=== PATIENT | male | born 1975 | race Two or more races ===

== ENCOUNTER → 2025-04-07 | Emergency (ER) | payer OTHER ==
[~2025-04-07] VITALS: Ht 175.3 cm; Wt 83.9 kg
[~2025-04-07] MED LIST: ACETAMINOPHEN 500 MG GEL..CAP PO ONE; FAMOTIDINE/PF 20 MG in 0.9 % SODIUM CHLORIDE 8 ML IV PUSH ONE; FAMOTIDINE/PF 20 MG/2 ML VIAL ONE; HYDROCODONE/CHLORPHEN P-STIREX 5 ML ML PO ONE; IPRAT-ALBUT 0.5-3 ML IH; METFORMIN HCL1000 M2 PO; METHYLPREDNISOLONE SOD SUCC 125 MG VIAL IV ONE; METHYLPREDNISOLONE SOD SUCC 125 MG VIAL ONE; MUCINEX DM ER1 EAC1 PO; PEPCID AC20 MG PO; VASOTEC20 M1 PO; ZITHROMAX500 MG PO
[2025-04-07 18:00] LABS: BASO % 0.5 % (0.1-1.2); EOS # 0.05 (0.04-0.54); EOS % 2.6 % (0.7-7.0); LYMPH # 0.85 (1.18-3.74); LYMPH % 44.3 % (19.3-53.1); MEAN PLATELET VOLUME 9.10 fl (9.4-12.4); MONO # 0.21 (0.24-0.82); MONO % 10.9 % (4.7-12.5); NEUT # 0.80 (1.56-6.13); NEUT % 41.7 % (34.0-71.1); RED CELL DISTRIBUTION WIDTH 12.7 % (11.6-14.4)
[2025-04-07 18:37] LABS: ALT/SGPT 128.0 U/L (12-78); AST/SGOT 58.0 U/L (15-37); BILIRUBIN TOTAL 0.43 mg/dL (0.3-1.2); BUN CREA RATIO 14.0 (7.0-25.0); CREATININE SERUM 1.17 mg/dL (0.70-1.30); GFR 65.99; GLOBULINA 4.0 G/DL (2.4-3.5); OSMOLALITY SERUM 284.0 MOSM/KG (275-295)
[2025-04-07 18:39] LABS: COVID-19 AG NEGATIVE (NEGATIVE)
[2025-04-07 18:47] LABS: GLUCOSE FASTING 221.0 mg/dL (65-100)
== END | disposition home or self-care (01) ==
LOC: ER 11:38
PROVIDERS: General Practice
DX: J06.9 Acute upper respiratory infection, unspecified (principal); I10 Essential (primary) hypertension; E11.9 Type 2 diabetes mellitus without complications; Z79.84 Long term (current) use of oral hypoglycemic drugs; Z20.822 Contact with and (suspected) exposure to COVID-19